=== PATIENT | female | born 1980 | race African-American/Black ===

== ENCOUNTER 2025-06-09 10:00 | Emergency (ER) | payer SELFPAY ==
[~2025-06-09] VITALS: Ht 172.7 cm; Wt 118.0 kg
[2025-06-09 10:03] VITALS: O2SAT 98
[2025-06-09 10:06] VITALS: BP 124/73; PULSE 71; RESP 18; TEMP 36.7; O2SAT 100
[2025-06-09] MEDS ORDERED: BO1 TP (10:32)
[2025-06-09] MEDS ORDERED: AMOX1TAB16 MT (10:32)
[2025-06-09 11:08] VITALS: TEMP 98
[2025-06-09] MEDS: ACETAMINOPHEN 500MG TABLET PO ONE (11:08)
[2025-06-09] MEDS: TETANUS, DIPHTHERIA, PERTUSSIS VAC/PF 0.5ML (>10YR OLD) IM ONE (11:08)
[2025-06-09] MEDS: BACITRACIN ZINC OINT UDPKT TOP ONE (11:08)
== END 2025-06-09 11:07 | disposition home or self-care (01) ==
LOC: ER 10:00
DX: S40.811A Abrasion of right upper arm, initial encounter (principal); S80.811A Abrasion, right lower leg, initial encounter; Z88.5 Allergy status to narcotic agent; W54.0XXA Bitten by dog, initial encounter; Y93.89 Activity, other specified; Y92.89 Other specified places as the place of occurrence of the external cause; Y99.8 Other external cause status
CPT/HCPCS: 90715; 90471; 99283; Z7610